=== PATIENT | male | born 1985 | race Caucasian/White ===

== ENCOUNTER 2018-05-04 20:07 | Emergency (ER) | payer BC ==
[~2018-05-04] VITALS: Ht 185.4 cm; Wt 117.9 kg
[2018-05-04] MEDS ORDERED: COZAAR25 MG PO (23:22)
[2018-05-04] MEDS ORDERED: VISTARIL50 MG PO (23:22)
== END 2018-05-04 23:34 | disposition home or self-care (01) ==
LOC: ER 20:07 → CPU-OBS 21:18 → ER 21:18
DX: R07.89 Other chest pain (principal); I10 Essential (primary) hypertension; F06.4 Anxiety disorder due to known physiological condition; M94.0 Chondrocostal junction syndrome [Tietze]

== ENCOUNTER 2019-01-26 01:53 | Emergency (ER) | payer OTHER ==
[~2019-01-26] VITALS: Ht 185.4 cm; Wt 127.0 kg
[~2019-01-26 01:53] MED LIST: COZAAR25 MG PO; VISTARIL50 MG PO
[2019-01-26] MEDS ORDERED: DICLOFENAC POTA50 MG PO (07:03)
[2019-01-26] MEDS ORDERED: DUI500 PO (07:03)
== END 2019-01-26 07:20 | disposition home or self-care (01) ==
LOC: ER 01:53
DX: S01.81XA Laceration without foreign body of other part of head, initial encounter (principal); S00.83XA Contusion of other part of head, initial encounter; S60.012A Contusion of left thumb without damage to nail, initial encounter; S20.212A Contusion of left front wall of thorax, initial encounter; V49.9XXA Car occupant (driver) (passenger) injured in unspecified traffic accident, initial encounter; Y93.89 Activity, other specified; Y92.488 Other paved roadways as the place of occurrence of the external cause; Y99.8 Other external cause status